=== PATIENT | female | born 1990 | race Caucasian/White ===

== ENCOUNTER 2016-09-21 16:35 | Emergency (ER) | payer OTHER ==
[~2016-09-21] VITALS: Ht 172.7 cm; Wt 66.6 kg
[2016-09-21 16:42] VITALS: Ht 172.7 cm; Wt 66.6 kg
[2016-09-21] MEDS ORDERED: CEFTRIAXONE SOD 350MG/ML 1 GM VIAL IM STA (21:11)
[2016-09-21] MEDS ORDERED: AZITHROMYCIN 250 MG TAB PO STA (21:11)
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
[2016-09-21] MEDS ORDERED: ONDANSETRON 4MG OD TAB PO ONE (21:15)
[2016-09-21] MEDS ORDERED: LEVONORGESTREL (EMERGENCY OC) 1.5 MG TAB PO ONE (21:15)
[2016-09-21] MEDS ORDERED: BCPILLS PO (21:57)
[2016-09-21 22:15] VITALS: O2SAT 100
[2016-09-21] MEDS ORDERED: HIV POST EXPOSURE PROPHYLAXIS KIT ONE (22:15)
[2016-09-21 22:44] VITALS: BP 130/80; PULSE 98; TEMP 36.5
[2016-09-21] MEDS ORDERED: DOXY100T17 PO (23:58)
== END 2016-09-21 22:15 | disposition home or self-care (01) ==
LOC: C.EDB 16:37 → C.EDC 22:15
DX: N73.9 Female pelvic inflammatory disease, unspecified (principal); Z04.41 Encounter for examination and observation following alleged adult rape; Z88.0 Allergy status to penicillin

== ENCOUNTER 2016-09-21 21:21 | Emergency (ER) | payer OTHER ==
[~2016-09-21] VITALS: Ht 172.7 cm; Wt 66.6 kg
[2016-09-21] MEDS ORDERED: SODIUM CHLORIDE 0.9% 1000ML 1,000 ML IV STA (21:31)
[2016-09-21] MEDS ORDERED: ONDANSETRON INJ 2 MG/ML 2 ML VIAL IV STA (21:31)
[2016-09-21] MEDS ORDERED: KETOROLAC TROMETHAMINE 30 MG/ML VIAL IV STA (21:31)
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
[2016-09-21 21:40] VITALS: TEMP 36.5; Ht 172.7 cm; Wt 66.6 kg
[2016-09-21] MEDS ORDERED: BCPILLS PO (21:57)
[2016-09-21 22:00] LABS: BASO % 0.2 %; BASO ABS # 0.02 K/uL (0-0.2); COMPLETE YES; EOS % 0.3 %; HEMATOCRIT 38.6 % (37-47); IG% 0.1 %; LYMPH % 30.9 %; LYMPH ABS # 2.71 K/uL (1.2-3.4); MEAN CELL VOLUME 90.6 fL (80-100); MEAN CORPUSCULAR HEMOGLOBIN 32.4 pg (25-34); MEAN CORPUSCULAR HGB CONC 35.8 g/dl (32-36); MEAN PLATELET VOLUME 9.8 fL (7.4-10.4); MONO % 6.8 %; NEUT % 61.7 %; PLATELET COUNT 244 K/uL (130-400); RED BLOOD COUNT 4.26 M/uL (4.2-5.4); WHITE BLOOD COUNT 8.78 K/uL (4.8-10.8)
[2016-09-21 22:12] LABS: CALCIUM 9.3 mg/dl (8.5-10.1); CREATININE 0.75 mg/dl (0.60-1.20); POTASSIUM 3.5 mmol/L (3.5-5.1)
[2016-09-21 22:16] LABS: URINE APPEARANCE CLOUDY (CLEAR); URINE BILIRUBIN NEG (NEG); URINE COLOR YELLOW; URINE EPITHELIAL CELL AUTO >30 /lpf (0-5); URINE NITRITE NEG (NEG); URINE PH 5.5 (4.5-7.5); URINE SPECIFIC GRAVITY 1.019 (1.000-1.030); UROBILINOGEN NEG (NEG)
[2016-09-21 22:17] LABS: REVIEW REQ? YES
[2016-09-21 22:18] LABS: MANUAL MICROSCOPIC REQUIRED? NO
[2016-09-21 22:22] LABS: PREG INTERNAL NEGATIVE QC NEG CLEAR BACKGROUND; PREG INTERNAL POSITIVE QC POS CONTROL LINE
--- NOTE | 2016-09-21 22:29 | DIAGNOSTIC IMAGING REPORT ---
KUB CLINICAL HISTORY: Abdominal pain. COMPARISON STUDY: None. FINDINGS: There is slight leftward curvature of the lumbar spine. Pelvic calcifications statistically represent phleboliths. Bowel gas pattern is normal. No renal calculi are identified although the renal shadows are partially obscured by stool. IMPRESSION: 1. No evidence for a bowel obstruction. 2. Several pelvic calcifications which statistically represent phleboliths. Electronically signed by: Erik Petersen M.D. 09/21/2016 10:27 PM Dictated Date/Time: 09/21/2016 10:26 PM
[2016-09-21 23:27] VITALS: BP 105/87; PULSE 77; O2SAT 99
[2016-09-21] MEDS ORDERED: DOXY100T17 PO (23:58)
--- NOTE | 2016-09-22 07:04 | DIAGNOSTIC IMAGING REPORT ---
EXAMINATION: PELVIC ULTRASOUND CLINICAL HISTORY: Left-sided pelvic pain COMPARISON STUDY: KUB dated 09/21/2016 FINDINGS: The uterus measured 8.4 x 3.9 x 4.9 cm. The endometrial stripe measured 7 mm. The right ovary measured 26 x 14 x 17 mm. The left ovary measured 29 x 25 x 14 mm.. There is no ultrasonographic evidence of ovarian torsion. It should be noted that ovarian torsion can be present with normal Doppler ultrasonographic findings. There was no evidence of pathologic free pelvic fluid. IMPRESSION: Normal transabdominal pelvic ultrasound. Electronically signed by: Suresh Turner M.D. 09/22/2016 7:03 AM Dictated Date/Time: 09/22/2016 7:01 AM
== END 2016-09-22 00:19 | disposition home or self-care (01) ==
LOC: C.EDC 21:51
DX: N73.9 Female pelvic inflammatory disease, unspecified (principal); R10.32 Left lower quadrant pain; Z79.3 Long term (current) use of hormonal contraceptives